=== PATIENT | male | born 1990 | race Hispanic/Latino ===

== ENCOUNTER 2019-01-18 10:20 | Emergency (ER) | payer SELFPAY ==
[2019-01-18] MEDS ORDERED: GUAIFENESIN/DEXTROMETHORPHAN 1 EACH TAB.SR.12H PO ONE (10:48)
== END 2019-01-18 11:01 | disposition home or self-care (01) ==
LOC: EDH 10:20
DX: J00 Acute nasopharyngitis [common cold] (principal); Z72.0 Tobacco use